=== PATIENT | male | born 2000 | race Caucasian/White ===

== ENCOUNTER 2024-08-22 02:43 | Inpatient (IN) | payer OTHER ==
[~2024-08-22] VITALS: Ht 185.4 cm; Wt 97.5 kg
[2024-08-22] MEDS ORDERED: HALOPERIDOL 2MG TABLET PO ONE (03:45)
[2024-08-22] MEDS ORDERED: ONDANSETRON HCL 4MG TABLET PO ONE (04:00)
[2024-08-22 04:19] LABS: BASOPHILS % 0.2 % (0.0-2.0); EOSINOPHILS % 0.1 % (0.0-5.0); HEMATOCRIT. 46.6 % (42.0-52.0); HEMOGLOBIN. 16.1 g/dL (14.0-18.0); LYMPHOCYTES % 11.1 % (20.0-50.0); MEAN CORPUSCULAR HEMOGLOBIN 29.4 pg (28.0-32.0); MEAN CORPUSCULAR HGB CONC 34.7 g/dL (31.0-37.0); MEAN CORPUSCULAR VOLUME 84.9 fL (80.0-94.0); MONOCYTES % 5.3 % (2.0-8.0); NEUTROPHILS % 83.3 % (40.0-76.0); PLATELET 262 x1000/uL (130-400); RED BLOOD CELL COUNT 5.49 mill/uL (4.7-6.1); RED CELL DISTRIBUTION WIDTH 13.2 % (11.6-14.6); WHITE BLOOD COUNT 14.7 x1000/uL (4.5-11.0)
[2024-08-22 04:25] LABS: CARBON DIOXIDE 20 mEq/L (21-32); CHLORIDE 105 mEq/L (98-107); POTASSIUM 3.3 mEq/L (3.5-5.1); SODIUM 142 mEq/L (136-145)
[2024-08-22 04:26] LABS: CALCIUM 10.2 mg/dL (8.7-10.4)
[2024-08-22 04:31] LABS: GLUCOSE 149 mg/dL (70-105); UREA NITROGEN BLOOD 17 mg/dL (9-23)
[2024-08-22 04:32] LABS: ALANINE AMINOTRANSFERASE 21 IU/L (10-49); ALBUMIN 5.4 g/dL (3.2-4.8); ASPARTATE AMINOTRANSFERASE 19 IU/L (<34)
[2024-08-22 04:33] LABS: BILIRUBIN DIRECT 0.9 mg/dL (<=3.0)
[2024-08-22] MEDS: HALOPERIDOL LACTATE 5MG/ML VIAL IM ONE (04:35)
[2024-08-22] MEDS: ONDANSETRON HCL 4MG/2ML INJ IV ONE ×2 (04:48→06:08)
[2024-08-22] MEDS: KETOROLAC 15MG/ML VIAL IV ONE (06:07)
[2024-08-22] MEDS ORDERED: ONDANSETRON HCL 4MG/2ML INJ IV PRN (08:30)
[2024-08-22] MEDS ORDERED: DIPHENHYDRAMINE 50MG/ML VIAL IV PRN (08:30)
[2024-08-22] MEDS: PANTOPRAZOLE SODIUM 40 MG/VIAL IV SCH (09:00)
[2024-08-22] MEDS ORDERED: DIAZEPAM 5 MG/ML 2ML SYR IV PRN (09:00)
[2024-08-22] MEDS ORDERED: KETOROLAC 30MG/ML VIAL IV PRN (09:00)
[2024-08-22] MEDS: DEXT 5%/0.45% NACL KCL 40MEQ/L 1,000 ML IV SCH (10:54)
[2024-08-22 14:43] VITALS: BP 132/61; PULSE 63; RESP 16; TEMP 36.8
[2024-08-22 14:44] LABS: *AMPHETAMINES SCREEN URINE NEGATIVE (NEGATIVE); *BARBITURATES SCREEN URINE NEGATIVE (NEGATIVE); *BENZODIAZEPINES SCREEN URINE NEGATIVE (NEGATIVE); *COCAINE SCREEN URINE NEGATIVE (NEGATIVE); CANNABINOID URINE SCREEN PRESUMPTIVE POSITIVE (NEGATIVE); ECSTASY MDMA SCREEN URINE NEGATIVE (NEGATIVE); METHADONE URINE SCREEN NEGATIVE (NEGATIVE); OPIATES URINE SCREEN NEGATIVE (NEGATIVE); PHENCYCLIDINE URINE SCREEN NEGATIVE (NEGATIVE)
[2024-08-22 16:00] VITALS: BP 112/68; PULSE 66; RESP 20; TEMP 36.6; O2SAT 96
[2024-08-22 16:23] VITALS: BP 125/62; PULSE 63; TEMP 98.1; O2SAT 98
== END 2024-08-22 17:12 | disposition home or self-care (01) | DRG 395 ==
LOC: ER 02:51 → 7EST 05:25 → EDBEDREQ 05:40 → ENRESERV 05:48
PROVIDERS: ADMIT Internal Medicine; ATTEND Internal Medicine
DX: R11.15 Cyclical vomiting syndrome unrelated to migraine (principal); F12.90 Cannabis use, unspecified, uncomplicated; Z87.11 Personal history of peptic ulcer disease
CPT/HCPCS: 36415; 80048; 80076; 80305; 85025; 99285; A4606; J1630; J1885; J2405